=== PATIENT | male | born 1965 | race Caucasian/White ===

== ENCOUNTER 2022-09-07 11:51 | Inpatient (IN) | payer MEDICAID ==
[~2022-09-07] VITALS: Ht 160 cm; Wt 78.9 kg
[2022-09-07] MEDS ORDERED: DAPA5TAB PO (12:14)
[2022-09-07] MEDS ORDERED: METF-874 PO (12:14)
[2022-09-07] MEDS ORDERED: ASPI-1497 PO (12:14)
[2022-09-07] MEDS ORDERED: LISI-648 PO (12:14)
[2022-09-07] MEDS ORDERED: LINA5TAB PO (12:14)
[2022-09-07] MEDS ORDERED: ATOR20TA65 PO (12:14)
[2022-09-07] MEDS ORDERED: MULT-622 PO (12:14)
[2022-09-07] MEDS ORDERED: CEFAZOLIN 1000MG PREMIX 50 ML IV STA ×2 (12:50)
[2022-09-07 12:54] LABS: BASOPHILS % 0.3 % (0.0-2.0); EOSINOPHILS % 0.3 % (0.0-5.0); HEMATOCRIT. 34.1 % (42.0-52.0); HEMOGLOBIN. 12.3 g/dL (14.0-18.0); LYMPHOCYTES % 12.6 % (20.0-50.0); MEAN CORPUSCULAR VOLUME 86.2 fL (80.0-94.0); MEAN PLATELET VOLUME 7.8 fl (7.4-10.4); MONOCYTES % 5.2 % (2.0-8.0); NEUTROPHILS % 81.6 % (40.0-76.0); PLATELET 234 x1000/uL (130-400); RED BLOOD CELL COUNT 3.96 mill/uL (4.7-6.1); RED CELL DISTRIBUTION WIDTH 12.6 % (11.6-14.6)
[2022-09-07 13:04] LABS: PROTHROMBIN TIME 10.7 sec (9.6-11.0)
[2022-09-07 13:14] LABS: CHLORIDE 96 mEq/L (98-107)
[2022-09-07] MEDS ORDERED: PROPOFOL 200MG/20ML VIAL IV ONE (13:39)
[2022-09-07] MEDS ORDERED: ONDANSETRON HCL 4MG/2ML INJ ONE (13:39)
[2022-09-07] MEDS ORDERED: DEXAMETHASONE 4MG/ML 1ML VIAL ONE (13:39)
[2022-09-07] MEDS ORDERED: CEFAZOLIN SODIUM 1000MG/VIAL ONE (13:57)
[2022-09-07] MEDS ORDERED: MIDAZOLAM HCL 2 MG/2 ML VIAL ONE (13:57)
[2022-09-07] MEDS ORDERED: ATROPINE SULFATE 0.4MG/ML VIAL IV PRN (14:00)
[2022-09-07] MEDS ORDERED: FENTANYL CITRATE/PF 50MCG/ML 2ML VIAL IV PRN (14:00)
[2022-09-07] MEDS ORDERED: CEFTAZIDIME PENTAHYDRATE OP SCH (14:00)
[2022-09-07] MEDS ORDERED: VANCOMYCIN OP SCH (14:00)
[2022-09-07] MEDS ORDERED: SODIUM CHLORIDE 0.9% OP SCH ×2 (14:00)
[2022-09-07] MEDS ORDERED: FENTANYL CITRATE/PF 50MCG/ML 2ML VIAL ONE (14:11)
[2022-09-07] MEDS ORDERED: LABETALOL HCL 5MG/ML VIAL 20ML IV ONE (14:38)
[2022-09-07] MEDS ORDERED: VANCOMYCIN 1G PREMIX 200 ML IV SCH (15:00)
[2022-09-07] MEDS ORDERED: HYDROCODONE/ACETAMINOPHEN 5/325MG TABLET PO PRN (15:00)
[2022-09-07] MEDS ORDERED: ACETAMINOPHEN 325MG TABLET PO PRN ×4 (15:30→19:00)
[2022-09-07] MEDS ORDERED: ONDANSETRON HCL 4MG/2ML INJ IV PRN (15:30)
[2022-09-07] MEDS ORDERED: DOCUSATE SODIUM 100MG CAPSULE PO PRN (15:30)
[2022-09-07] MEDS ORDERED: NALOXONE HCL 0.4MG/ML VIAL IV PRN (15:30)
[2022-09-07] MEDS ORDERED: MAGNESIUM/ALUMINUM HYDROXIDE/SIMETHICONE 30ML UDC PO NR (15:30)
[2022-09-07 16:00] VITALS: BP 170/79
[2022-09-07 20:00] VITALS: BP 157/72
[2022-09-07] MEDS ORDERED: HYDRALAZINE 20MG/ML VIAL IV PRN (21:15)
[2022-09-07] MEDS ORDERED: DEXTROSE 50% WATER 50ML SYRINGE IV PRN (21:15)
[2022-09-07] MEDS: BLOOD SUGAR DIAGNOSTIC STRIP TEST SCH (21:57)
[2022-09-07] MEDS: INSULIN LISPRO 100 UNITS/ML SUBCUT SCH (22:05)
[2022-09-07] MEDS: SODIUM CHLORIDE 0.9% INJ 3ML FLUSH IVF SCH (22:05)
[2022-09-08] VITALS: BP 123/67
[2022-09-08 04:00] VITALS: BP 134/70
[2022-09-08] MEDS: SODIUM CHLORIDE 0.9% INJ 3ML FLUSH IVF SCH ×2 (05:33→12:22)
[2022-09-08] MEDS: BLOOD SUGAR DIAGNOSTIC STRIP TEST SCH ×2 (06:24→12:22)
[2022-09-08] MEDS ORDERED: BLOOD SUGAR DIAGNOSTIC STRIP TEST SCH (07:20)
[2022-09-08 07:30] VITALS: BP 180/86
[2022-09-08] MEDS: INSULIN LISPRO 100 UNITS/ML SUBCUT SCH ×2 (07:36→12:25)
[2022-09-08] MEDS ORDERED: INSULIN LISPRO 100 UNITS/ML SUBCUT SCH (07:50)
[2022-09-08] MEDS ORDERED: ENOXAPARIN 40MG/0.4ML SYR SUBCUT SCH (09:00)
[2022-09-08] MEDS ORDERED: AMLODIPINE 5MG TABLET PO SCH (09:00)
[2022-09-08 12:11] VITALS: BP 148/78
[2022-09-08 14:22] VITALS: BP 148/68
== END 2022-09-08 15:45 | disposition home or self-care (01) | DRG 73 ==
LOC: ER 12:26 → 6WST 14:07 → EDBEDREQ 14:12 → ENRESERV 14:17
PROVIDERS: ADMIT Internal Medicine; ATTEND Internal Medicine
PROC: 089 Eye, Drainage (ICD-10-PCS; principal; 2022-09-07)
PROC: 3E0C329 Introduction of Other Anti-infective into Eye, Percutaneous Approach (ICD-10-PCS; 2022-09-07)
DX: H44.001 Unspecified purulent endophthalmitis, right eye (principal); E11.319 Type 2 diabetes mellitus with unspecified diabetic retinopathy without macular edema; I10 Essential (primary) hypertension; E78.00 Pure hypercholesterolemia, unspecified; I95.9 Hypotension, unspecified; H53.8 Other visual disturbances; H26.9 Unspecified cataract; Z20.822 Contact with and (suspected) exposure to COVID-19
CPT/HCPCS: 36415; 80053; 82962; 83036; 85025; 86850; 86900; 87070; 87426; 93005; 99285; C9803; J0690; J0713; J1100; J1650; J1815; J2250; J2405; J2704; J3010; J3370; J3490